=== PATIENT | female | born 1960 | race Caucasian/White ===

== ENCOUNTER 2017-11-19 09:37 | Emergency (ER) | payer OTHER ==
[2017-11-19 09:47] VITALS: BP 146/93; PULSE 95; RESP 18; TEMP 100.2; O2SAT 96
[2017-11-19] MEDS ORDERED: IBUPROFEN 600 MG TAB PO ONE (09:49)
--- NOTE | 2017-11-19 10:03 | EDPHY ---
H & P Stated Complaint: started yesterday with cough, fever 100F, ST Time Seen by Provider: 11/19/17 09:47 HPI/ROS: Chief Complaint: Sore throat, cough, fevers HPI: 57-year-old woman started having congestion and cough yesterday morning. It got worse over the course today. Overnight last night she was up with cough which is largely nonproductive. She is having sore throat as been clearing her throat. Some fevers to 100.2 at home. No chest pain. No shortness of breath. Patient's primary complaint is sore throat. She has also some congestion. Has been taking ibuprofen and acetaminophen. Also having some body aches as well. ROS: 10 point Review of Systems is negative except as noted in the HPI. PMH: Hypertension Social History: No smoking, occasional alcohol, no recreational drug use Family History: non-contributory Physical Exam: Gen: Awake, Alert, No Distress HEENT: Ears: Normal Nose: no rhinorrhea Eyes: PERRLA, EOMI Mouth: Moist mucosa mild for oral pharyngeal erythema without edema or exudate Neck: Supple, no JVD Chest: nontender, lungs clear to auscultation Heart: S1, S2 normal, no murmur Abd: Soft, non-tender, no guarding Back: no CVA tenderness, no midline tenderness Ext: no edema, non-tender Skin: no rash Neuro: CN II-XII intact, Sensation grossly intact, Strength 5/5 in bilateral upper and lower extremities - Personal History Current Tetanus/Diphtheria Vaccine: Yes Tetanus Vaccine Date: < 10 years - Medical/Surgical History Hx Asthma: No Hx Chronic Respiratory Disease: No Hx Diabetes: No Hx Cardiac Disease: No Hx Renal Disease: No Hx Cirrhosis: No Hx Alcoholism: No Hx HIV/AIDS: No Hx Splenectomy or Spleen Trauma: No Other PMH: left hip replacement, bilateral shoulder sugery, tubal ligation, gum surgery, HTN 2 YAERS AGO - Social History Smoking Status: Never smoked Constitutional: Initial Vital Signs Temperature (C) 37.9 C 11/19/17 09:43 Heart Rate 95 11/19/17 09:43 Respiratory Rate 18 11/19/17 09:43 Blood Pressure 146/93 H 11/19/17 09:43 O2 Sat (%) 96 11/19/17 09:43 O2 Delivery Mode Room Air Allergies/Adverse Reactions: VICRYL SUTURES Allergy (Uncoded 11/19/17 09:47) Other-infection Home Medications: Medication Instructions Recorded INDAPAMIDE 11/19/17 Losartan Potassium 11/19/17 Medical Decision Making ED Course/Re-evaluation: Rapid strep is negative. Symptoms consistent with viral upper respiratory infection. Will discharge with [id number] cough and cold medications, follow up with primary care physician in about a week. - Data Points Laboratory Results: 11/19/17 11/19/17 Unknown 10:00 Group A Strep Screen NEGATIVE (NEGATIVE) Group A Strep DNA Pending Medications Given: Discontinued Medications Ibuprofen (Motrin) 600 mg PO EDNOW ONE Stop: 11/19/17 09:50 Last Admin: 11/19/17 09:52 Dose: 600 mg Departure - Departure Disposition: Home, Routine, Self-Care Clinical Impression: Viral upper respiratory illness Condition: Good Instructions: Upper Respiratory Infection (ED) Additional Instructions: You may take [id number] cough and cold medications according to package instructions. You may also take ibuprofen according to package instructions for aches and pains. Follow up with your primary care physician in about a week if symptoms are not improving. Referrals: Calvin Luong MD [Primary Care Provider] - As per Instructions Stand Alone Forms: Airline Excuse
== END 2017-11-19 10:34 | disposition home or self-care (01) ==
LOC: CED 09:37
DX: J06.9 Acute upper respiratory infection, unspecified (principal); I10 Essential (primary) hypertension
CPT/HCPCS: 87880-PO